=== PATIENT | male | born 1950 | race Caucasian/White ===

== ENCOUNTER → 2017-11-20 | Outpatient (CLI) | payer OTHER, BC | LOC: BMCIMAGING 07:51 | PROVIDERS: ATTEND Family Medicine | DX: J42 Unspecified chronic bronchitis (principal); J98.4 Other disorders of lung; J90 Pleural effusion, not elsewhere classified; I48.91 Unspecified atrial fibrillation ==

== ENCOUNTER → 2018-05-19 | Outpatient (CLI) | payer OTHER, BC | LOC: FCPNEURO 21:00 | PROVIDERS: ATTEND Psychiatry & Neurology Sleep Medicine | DX: G47.31 Primary central sleep apnea (principal) | CPT/HCPCS: G0103 ==

== ENCOUNTER → 2018-06-22 | Outpatient (CLI) | payer OTHER, BC | LOC: FCPNEURO 23:48 | PROVIDERS: ATTEND Psychiatry & Neurology Sleep Medicine | DX: G47.39 Other sleep apnea (principal) ==